=== PATIENT | male | born 1985 | race Caucasian/White ===

== ENCOUNTER 2024-06-19 09:13 | Emergency (ER) | payer SELFPAY ==
[2024-06-19 10:20] LABS: Specific Gravity < 1.005 (1.005-1.030); Sqamous Epithelial <5 /HPF (None Seen); Urine Bacteria 20-50 /HPF (<20); Urine Bilirubin NEGATIVE (Negative); Urine Blood Trace (Negative); Urine Clarity Extremely Turbid (Clear); Urine Color Colorless (Yellow); Urine Culture Reflex Order REFLEXED; Urine Glucose 3+ (Negative); Urine Ketones NEGATIVE (Negative); Urine Microscopic Reflex YN ORDER UMIC; Urine Nitrite NEGATIVE (Negative); Urine Protein NEGATIVE (Negative); Urine RBC <5 /HPF (None Seen); Urine Urobilinogen Normal (Normal); Urine WBC >50 /HPF (<5); Urine WBC Clump Occasional /HPF (None Seen); Urine pH 6.5 (5.0-7.0)
[2024-06-19 10:27] LABS: Absolute Basophils 0.1 K/uL (0-0.5); Absolute Eosinophils 0.4 K/uL (0-0.5); Absolute Lymphocytes (CBC) 2.7 K/uL (0.7-4.9); Absolute Monocytes 0.9 K/uL (0.1-1.3); Absolute Neutrophil 7.9 K/uL (1.8-8.0); Basophils % 0.7 % (0-1.3); Eosinophils % 3.5 % (0-4.4); Hematocrit 43.6 % (39.6-49.0); Hemoglobin 14.9 g/dL (13.6-17.9); Lymphocytes % 22.1 % (15.3-44.8); MCHC 34.3 g/dL (32.0-36.0); MCV 81.6 fL (80-100); MPV 8.6 fL (7.6-11.3); Monocytes % 7.5 % (3.3-12.3); Neutrophils % 66.2 % (41.7-73.7); Platelets 326 thou/uL (152-406); RBC Red Blood Cell Count 5.34 M/uL (4.33-5.43); Red Cell Distribution Width 12.9 % (12.1-15.2)
--- NOTE | 2024-06-19 10:37 | RAD REPORT ---
EXAMINATION: CT ABDOMEN AND PELVIS WITHOUT CONTRAST CLINICAL INDICATION: Male, 38 years old.FLANK PAIN TECHNIQUE: CT abdomen and pelvis was performed, without IV contrast, as per department protocol. Axia l, sagittal and coronal reconstructions were obtained. One or more of the following dose reduction techniques were used: Automated exposure control, adjustment of the mA and/or kV according to the pat ient size, and/or iterative reconstruction. Unless otherwise specified, incidental findings do not require dedicated imaging follow-up. [id number]. IV CONTRAST: Not administered. COMPARISON: None FINDINGS: The lack of intravenous contrast limits the sensitivity of this exam for evaluation of solid visceral organs, vascular structures, and retroperitoneum. LOWER CHEST: No acute process identified.No significant pericardial effusion. Mild circumferential th ickening of the distal esophagus which could reflect esophagitis. UPPER GI: No significant abnormality. LIVER: Hepatic steatosis, but otherwise unremarkable. GALLBLADDER/BILE DUCTS: No biliary ductal dilatation.? PANCREAS: No mass, ductal dilation, or charlene-pancreatic fluid. SPLEEN: Unremarkable. ADRENALS: No adrenal masses. KIDNEYS AND URETERS: No hydronephrosis.Within the limitations of a noncontrast CT, no suspicious doc l lesions.No urinary tract calculi. ABDOMINAL AORTA AND OTHER VESSELS: Normal caliber aorta and IVC. PERITONEUM: No abnormal free fluid. No free air. LYMPH NODES: No pathologic lymphadenopathy. ABDOMINAL WALL: Unremarkable SMALL BOWEL/COLON: Small bowel has normal course and caliber. No colonic wall thickening or pericolon ic inflammatory changes.Normal appendix. Mild diverticulosis without diverticulitis. URINARY BLADDER: Moderate bladder wall thickening with stranding. REPRODUCTIVE ORGANS: No pathologic process. MUSCULOSKELETAL: No acute or suspicious osseous abnormality. ADDITIONAL FINDINGS: None. IMPRESSION: Findings concerning for cystitis. No hydronephrosis or urinary tract calculi. Recommend correlation w ith urinalysis. Normal appendix
[2024-06-19 11:39] LABS: Albumin 3.8 g/dL (3.4-5.0); Albumin/Globulin Ratio 1.1 (1.1-1.8); Bilirubin Total 0.8 mg/dL (0.2-1.0); Globulin 3.6 g/dL (2.3-3.5); Protein, Total 7.4 g/dL (6.4-8.2)
--- NOTE | 2024-06-19 13:09 | EDPHYS ---
Physician Documentation [facility] Name: Saul Mayers Age: 38 yrs Sex: Male : 1985 Arrival Date: 06/19/2024 Time: 09:13 Bed 7 Private MD: ED Physician Darian Kline HPI: 06/19 09:43 This 38 yrs old Male presents to ER via Ambulatory with complaints of Possible Kidney rt Stone. 09:43 Patient presents to the ED with urinary symptoms since Monday. Patient states that he rt initially passed what describes as pus with a small mount of blood, had pain, reported subjective fever, chills at that time, symptoms have subsequently improved, then only having a mild discomfort over the bladder, described as a burning sensation. Patient states that his second episode where he passes what he describes as pus. He is unclear if he passed a kidney stone or not. Reports the pain to the mid back, denies flank pain. Reports a continued pain overlying his bladder. Denies other acute complaints at this time, symptoms are moderate in severity, no other aggravating or alleviating factors.. Historical: - Allergies: 09:38 No Known Allergies; jl7 - PMHx: 09:38 Hypertensive disorder; jl7 - Immunization history:: Adult Immunizations up to date. - Infectious Disease History:: Denies. - Social history:: Smoking status: unknown. - Family history:: not pertinent. ROS: :43 Constitutional: Negative for fever, chills, and weight loss, Cardiovascular: Negative rt for chest pain, palpitations, and edema, Respiratory: Negative for shortness of breath, cough, wheezing, and pleuritic chest pain, Abdomen/GI: Negative for abdominal pain, nausea, vomiting, diarrhea, and constipation, Skin: Negative for injury, rash, and discoloration, Neuro: Negative for headache, weakness, numbness, tingling, and seizure, : : Positive for urinary symptoms, hematuria, Exam: : Constitutional: This is a well developed, well nourished patient who is awake, alert, rt and in no acute distress. Head/Face: Normocephalic, atraumatic. Chest/axilla: Normal chest wall appearance and motion. Nontender with no deformity. No lesions are appreciated. Cardiovascular: Regular rate and rhythm with a normal S1 and S2. No gallops, murmurs, or rubs. Normal PMI, no JVD. No pulse deficits. Respiratory: Lungs have equal breath sounds bilaterally, clear to auscultation and percussion. No rales, rhonchi or wheezes noted. No increased work of breathing, no retractions or nasal flaring. Skin: Warm, dry with normal turgor. Normal color with no rashes, no lesions, and no evidence of cellulitis. MS/ Extremity: Pulses equal, no cyanosis. Neurovascular intact. Full, normal range of motion. 09:43 Abdomen/GI: Mild tenderness at the suprapubic region, no CVAT, Vital Signs: 09:36 BP 155 / 102; Pulse 85; Resp 17; Pulse Ox 100% ; jl7 09:40 Temp 97.8; jl7 10:20 BP 148 / 96; Pulse 82; Resp 15; Pulse Ox 99% ; ko1 13:22 BP 139 / 95; Pulse 78; Resp 15; Pulse Ox 99% ; ko1 MDM: 09:41 Medical Screening Exam initiated rt 14:02 Differential Diagnosis Kidney stone, pyelonephritis, UTI, hyperglycemia. Data reviewed: rt vital signs, nurses notes, lab test result(s), radiologic studies. I considered the following discharge prescriptions or medication management in the emergency department. Independent interpretation of the following test(s) in the Emergency Department CT Scan: My interpretation is No ureteral stone seen on interpretation of CT scan images. Care significantly affected by the following chronic conditions: Hypertension. Counseling: I had a detailed discussion with the patient and/or guardian regarding the historical points, exam findings, and any diagnostic results supporting the discharge/admit diagnosis, lab results, radiology results, the need for outpatient follow up, Patient extensively counseled on UTI, hyperglycemia as well as need for initiation of antihyperglycemic's. Social work was contacted, was given extensive resources for primary care follow-up as well as prescription medicine aid.. 06/19 09:42 Order name: CBC with Diff; Complete Time: 10:41 rt 06/19 09:42 Order name: CMP; Complete Time: 12:51 rt 06/19 09:42 Order name: Urinalysis w/ reflexes; Complete Time: 10:41 rt 06/19 10:24 Order name: Urine Culture EDMS 06/19 09:42 Order name: CT Abd/Pelvis - Without Contrast; Complete Time: 10:41 rt 06/19 13:17 Order name: Social Service Consult EDMS 06/19 09:42 Order name: Labs collected and sent; Complete Time: 10:19 rt 06/19 10:50 Order name: Labs - recollect needed: recollect green top; Complete Time: 11:09 bd Administered Medications: No medications were administered Disposition Summary: 06/19/24 13:09 Discharge Ordered Notes: Location: Home rt Problem: new rt Symptoms: are unchanged rt Condition: Stable rt Diagnosis - UTI/ Urinary tract infection, site not specified rt - Type 2 diabetes mellitus with hyperglycemia rt Followup: rt - With: Private Physician - When: 2 - 3 days - Reason: Discharge Instructions: - Discharge Summary Sheet rt Forms: - Work release form db - Medication Reconciliation Form rt - Antibiotic Education rt - Prescription Opioid Use rt - Patient Portal Instructions rt - Leadership Thank You Letter rt Prescriptions: - Metformin 500 mg Oral tablet - take 1 tablet ORAL route once daily for 7 days Then take 1 tablet with morning rt meals AND evening meals; 60 tablet; Refills: 0, Product Selection Permitted - Macrobid 100 mg Oral Capsule - take 1 capsule ORAL route every 12 hours for 7 days; 14 capsule; Refills: 0, rt Product Selection Permitted Signatures: Dispatcher [employer] EDFloridalma Garcia Jahala, RN RN jl7 Darian Kline MD MD rt Corrections: (The following items were deleted from the chart) 09:42 09:42 CBC+H.LAB.BRZ ordered. EDMS EDMS 09:42 09:42 COMPREHENSIVE METABOLIC PANEL+C.LAB.BRZ ordered. EDMS EDMS 09:42 09:42 Urinalysis+U.LAB.BRZ ordered. EDMS EDMS 09:42 09:42 Abdomen Pelvis Wo Con+CT.RAD.BRZ ordered. EDMS EDMS
--- NOTE | 2024-06-19 13:09 | ER ---
Nurse's Notes [facility] Name: Saul Mayers Age: 38 yrs Sex: Male : 1985 Arrival Date: 06/19/2024 Time: 09:13 Bed 7 Private MD: Diagnosis: UTI/ Urinary tract infection, site not specified;Type 2 diabetes mellitus with hyperglycemia Presentation: 06/19 09:36 Chief complaint: Patient states: Pain with urination, pus noted in urine, chills, jl7 fatigue x 1.5 weeks. Coronavirus screen: At this time, the client does not indicate any symptoms associated with coronavirus-19. Ebola Screen: No symptoms or risks identified at this time. Initial Sepsis Screen: Does the patient meet any 2 criteria? No. Patient's initial sepsis screen is negative. Does the patient have a suspected source of infection? No. Patient's initial sepsis screen is negative. Risk Assessment: Do you want to hurt yourself or someone else? Patient reports no desire to harm self or others. Onset of symptoms was June 09, 2024. 09:36 Method Of Arrival: Ambulatory [facility] 09:36 Acuity: ALEX 3 jl7 Triage Assessment: 09:38 General: Appears in no apparent distress. uncomfortable, Behavior is calm, cooperative, jl7 appropriate for age. Pain: Complains of pain in pelvis Pain currently is 6 out of 10 on a pain scale. Cardiovascular: Patient's skin is warm and dry. Respiratory: Airway is patent Respiratory effort is even, unlabored, Respiratory pattern is regular, symmetrical. GI: Abdomen is non-distended. : Reports burning with urination, urinary frequency. Derm: Skin is pink, warm \T\ dry. Historical: - Allergies: 09:38 No Known Allergies; jl7 - PMHx: 09:38 Hypertensive disorder; jl7 - Immunization history:: Adult Immunizations up to date. - Infectious Disease History:: Denies. - Social history:: Smoking status: unknown. - Family history:: not pertinent. Screenin:19 [facility] ED Fall Risk Assessment (Adult) History of falling in the last 3 months, ko1 including since admission No falls in past 3 months (0 pts) Confusion or Disorientation No (0 pts) Intoxicated or Sedated No (0 pts) Impaired Gait No (0 pts) Mobility Assist Device Used No (0 pt) Altered Elimination No (0 pt) Score/Fall Risk Level 0 - 2 = Low Risk Oriented to surroundings, Maintained a safe environment, Educated pt \T\ family on fall prevention, incl call for assistance when getting out of bed, Assessed \T\ reinforced patient's understanding of fall precautions, Hourly rounding (assess needs \T\ fall precautionary measures) done. Abuse screen: Denies threats or abuse. Denies injuries from another. Nutritional screening: No deficits noted. Tuberculosis screening: No symptoms or risk factors identified. Assessment: 10:20 General: Appears in no apparent distress. Behavior is cooperative, appropriate for age, ko1 anxious. Pain: Complains of pain in pelvis. Neuro: No deficits noted. Cardiovascular: No deficits noted. Respiratory: No deficits noted. GI: Bowel sounds present X 4 quads. Abd is soft and non tender X 4 quads. : Reports pain in suprapubic area. 10:20 EENT: No deficits noted. No signs and/or symptoms were reported regarding the EENT ko1 system. Derm: No deficits noted. No signs and/or symptoms reported regarding the dermatologic system. Musculoskeletal: No deficits noted. No signs and/or symptoms reported regarding the musculoskeletal system. Vital Signs: 09:36 BP 155 / 102; Pulse 85; Resp 17; Pulse Ox 100% ; jl7 09:40 Temp 97.8; jl7 10:20 BP 148 / 96; Pulse 82; Resp 15; Pulse Ox 99% ; ko1 13:22 BP 139 / 95; Pulse 78; Resp 15; Pulse Ox 99% ; ko1 ED Course: 09:14 Patient arrived in ED. al6 09:14 Darian Kline MD is Attending Physician. rt 09:38 Triage completed. jl7 09:38 Arm band placed on right wrist. jl7 09:52 CT Abd/Pelvis - Without Contrast In Process Unspecified. EDMS 10:06 Urinalysis w/ reflexes Sent. ko1 10:19 Gayatri Bernal, LORI is Primary Nurse. ko1 10:19 Patient has correct armband on for positive identification. Bed in low position. Call ko1 light in reach. Side rails up X 1. Provided Education on: lab. Pulse ox on. NIBP on. Door closed. Noise minimized. Lights dimmed. Warm blanket given. Pillow given. Assisted to bathroom. 10:19 CBC with Diff Sent. ko1 10: CMP Sent. ko1 10: No provider procedures requiring assistance completed. Initial lab(s) drawn, by me, ko1 sent to lab. Urine collected: clean catch specimen, clear. Inserted saline lock: 20 gauge in right antecubital area, using aseptic technique. Blood collected. Flushed with 10 mL NS. 13:22 IV discontinued, intact, bleeding controlled, No redness/swelling at site. Pressure ko1 dressing applied. Administered Medications: No medications were administered Medication: : VIS not applicable for this client. ko1 Outcome: 13:09 Discharge ordered by . rt 13:22 Discharged to home ambulatory, ko1 13:22 Condition: stable 13:22 Discharge instructions given to patient, Instructed on discharge instructions, follow up and referral plans. medication usage, Demonstrated understanding of instructions, follow-up care, medications, Prescriptions given X 2, 13:31 Patient left the ED. ko1 Signatures: Dispatcher [employer] EDElías Willoughby RN RN jl7 Gayatri Bernal RN RN ko1 Darian Kline MD MD rt Caterina Salgado6
[2024-06-19 21:12] VITALS: TEMP 97.8
[2024-06-19 21:13] VITALS: O2SAT 99
[2024-06-19 21:14] VITALS: BP 139/95
== END 2024-06-19 13:31 | disposition home or self-care (01) ==
LOC: ER 09:13
DX: N39.0 Urinary tract infection, site not specified (principal); E11.65 Type 2 diabetes mellitus with hyperglycemia
CPT/HCPCS: 36415; 74176; 80053; 81001; 85025; 87086; 87088